=== PATIENT | male | born 1970 | race Caucasian/White ===

== ENCOUNTER 2022-12-01 01:29 | Emergency (ER) | payer OTHER, SELFPAY ==
[2022-12-01] VITALS (16 sets, daily range): BP systolic 138–162; BP diastolic 91–107; PULSE 83–91; RESP 13–25; TEMP 36.3; O2SAT 92–97
--- NOTE | ~2022-12-01 | XR_ITS ---
Left Shoulder Technique: AP and scapular Y views were obtained. Clinical History: Trauma Findings: There is an oblique fracture through the humeral head, extending from the radial aspect of the surgical neck through the greater tuberosity. Fracture is minimally displaced, with probable mild comminution.. The glenohumeral and acromioclavicular joint spaces are preserved. Soft tissues are un remarkable. Impression: Oblique, mildly displaced, probable comminuted fracture of the proximal humerus/humeral head, as deta iqrad above. Reviewed, dictated and finalized at location [facility] [employer] Impression: Oblique, mildly displaced, probable comminuted fracture of the proximal humerus /humeral head, as detailed above.
--- NOTE | 2022-12-01 02:11 | ED.UPPEXIN ---
HPI - Extremity Injury (Upper) General Chief Complaint: Extremity Injury, Upper Stated Complaint: fall. shoulder deformity Time Seen by Provider: 12/01/22 01:35 Source: patient, EMS and old records reviewed Mode of arrival: EMS Limitations: clinical condition History of Present Illness HPI narrative: Patient is a 52 y/o male with a PMHx of CVA w/ L sided hemiplegia and previous TBI, who presents to the ED via EMS with report of left shoulder pain. Patient is a resident of [facility]. Patient reports he got up to use the restroom [employer] and was ambulating with his cane when he lost his balance and fell onto his left side. He landed against his left shoulder. He denied any head injury or LOC, or any prodromal symptoms. Patient was given fentanyl in route by EMS. Patient presented to ED with arm sling in place. He reports he fell in October 2022 and injured his left shoulder at that time as well. He is unsure if he sustained a fracture or dislocation, states he had pain over his proximal left shoulder at that time also. He has not followed up with an sales order specialist and is unsure if he is supposed to. He denies any other pain at this time. Denies vision changes, dizziness, nausea, vomiting. Related Data Allergies Allergy/AdvReac Type Severity Reaction Status Date / Time NKDA Allergy Mild Uncoded 08/13/10 21:48 Review of Systems Review of Systems: CONSTITUTIONAL: Denies fever, chills, or sweats. CARDIOVASCULAR: Denies chest pain. RESPIRATORY: Denies dyspnea. GASTROINTESTINAL: Denies abdominal pain, nausea, vomiting, or diarrhea. MUSCULOSKELETAL: See HPI. NEUROLOGIC: Denies HI, LOC, dizziness, headache, numbness, or weakness. All systems reviewed & are unremarkable except as noted in HPI and below PMFSH Past Medical History Medical History (Updated 12/01/22 @ 02:39 by Justine Novoa PA-C) CVA (cerebral vascular accident) Humerus fracture TBI (traumatic brain injury) Surgical History Surgical History (Updated 12/01/22 @ 02:36 by Justine Novoa PA-C) No pertinent past surgical history Social History Social History (Updated 12/01/22 @ 02:36 by Justine Novoa PA-C) Smoking status: Never smoker Living arrangements: care home Exam Narrative: GENERAL: Chronically ill appearing, well-nourished, non-toxic, in no acute distress. HEAD: Normocephalic, atraumatic. EYES: PERRLA/EOMI, conjunctiva clear. NECK: Supple. No adenopathy, no masses. RESPIRATORY: Airway patent, respirations nonlabored. Clear to auscultation bilaterally, no rales, rhonchi, wheezing. CARDIOVASCULAR: Regular rate and rhythm without murmurs, rubs, or gallops. Radial pulses 2+ and equal bilaterally. MUSCULOSKELETAL: Hemiplegia of L side. LUE in arm sling. Diffuse ecchymosis from L mid humerus to forearm. Sensation intact. Good capillary refill. Diffuse tenderness to palpation over L proximal humerus. No gross deformity. No significant tenderness over clavicle. No tenderness over medial/lateral epicondyle of L elbow. No tenderness over distal humerus or L forearm. SKIN: Warm, dry, normal color. No rashes. NEURO: Alert, confused about certain topics. Speech clear. Cranial nerves II-XII grossly intact. No ataxic movements. PSYCHIATRIC: Appropriate mood and affect. Normal interaction. Course Vital Signs Vital signs: Vital Signs Temperature 97.4 F L 12/01/22 01:30 Pulse Rate 84 12/01/22 01:30 Respiratory Rate 18 12/01/22 01:30 Blood Pressure 156/105 H 12/01/22 01:30 Pulse Oximetry 97 12/01/22 01:30 Oxygen Delivery Room Air 12/01/22 01:30 Temperature 97.4 F L 12/01/22 01:30 Pulse Rate 86 12/01/22 02:01 Respiratory Rate 15 12/01/22 02:01 Blood Pressure 154/94 H 12/01/22 02:00 Pulse Oximetry 97 12/01/22 02:01 Oxygen Delivery Room Air 12/01/22 01:30 MDM - Extremity Injury (Upper) MDM Narrative Medical decision making narrative: Patient presented to ED with l
[2022-12-01] MEDS: ONDANSETRON INJ 4 MG/2 ML VIAL IV PUSH (02:20)
[2022-12-01] MEDS: MORPHINE SULFATE (*CRX) 4 MG/ML INJ IV PUSH (02:20)
--- NOTE | 2022-12-01 03:24 | PC.NURSE ---
[facility] given report that patient would be coming back from hospital. D/c paperwork sent with patient and EMS. no questions prior to discharge.
== END 2022-12-01 04:11 ==
PROVIDERS: Emergency Provider Physician Assistant; PCP Emergency Medicine
DX: S42.292A Other displaced fracture of upper end of left humerus, initial encounter for closed fracture (principal); I69.954 Hemiplegia and hemiparesis following unspecified cerebrovascular disease affecting left non-dominant side; Z87.820 Personal history of traumatic brain injury; W18.39XA Other fall on same level, initial encounter
CPT/HCPCS: 73030; 96374; 96375; 99284; J2270; J2405